=== PATIENT | male | born 1985 | race Caucasian/White ===

== ENCOUNTER 2020-12-09 12:36 | Emergency (ER) | payer OTHER, SELFPAY ==
[2020-12-09 12:53] VITALS: BP 134/79; PULSE 62; RESP 16; TEMP 36.8; O2SAT 96; BMI 27.3
[2020-12-09 13:10] LABS: COVID19 -Nasal RAPID Negative (Negative)
--- NOTE | 2020-12-09 13:16 | ED.GENADULT ---
HPI - General Adult General Chief complaint: Recheck/Abnormal Lab/Rx Stated complaint: grilfriend is pos covid needs a test to go to work Time Seen by Provider: 12/09/20 12:39 Source: patient Mode of arrival: Ambulatory Limitations: no limitations History of Present Illness HPI narrative: Patient is a 35-year-old male who is otherwise healthy who has no symptoms he was here for a COVID test. His girlfriend whom with he lives was seen here this morning and tested positive for COVID. He states he needed a COVID test prior to returning to work. Related Data Home Medications Medication Instructions Recorded Confirmed No Known Home Medications 06/23/18 06/23/18 Allergies Allergy/AdvReac Type Severity Reaction Status Date / Time No Known Drug Allergies Allergy Unverified 06/23/18 15:33 Review of Systems Constitutional Constitutional: Denies fever(s) and Denies headache(s) ENT Ears, Nose, Mouth, and Throat: Denies headache(s) Cardiovascular Cardiovascular: Denies dyspnea Respiratory Respiratory: Denies cough and Denies dyspnea Gastrointestinal Gastrointestinal: Denies abdominal pain, Denies nausea and Denies vomiting Integumentary/Breasts Skin/Breast: Denies rash Neurologic Neurologic: Denies headache(s) Hematologic/Lymphatic Hematologic/Lymphatic: Denies easy bleeding and Denies easy bruising Allergic/Immunologic Allergic/Immunologic: Denies urticaria Patient History Medical History Healthy adult Social History Smoking Status: Never smoker Smoking Status: Never smoker alcohol intake frequency: 0-2 drinks per day Substance Use Type: marijuana Exam Initial Vital Signs Initial Vital Signs: Vital Signs Temperature 98.2 F 12/09/20 12:53 Pulse Rate 62 12/09/20 12:53 Respiratory Rate 16 12/09/20 12:53 Blood Pressure 134/79 12/09/20 12:53 Pulse Oximetry 96 12/09/20 12:53 Const General: cooperative and comfortable Resp Effort & Inspection: normal respiratory effort Cardio Rate: regular rate Skin Lesions: no lesions Rashes: no rashes Extrem General: capillary refill normal Psych Appearance: grossly normal and well kempt Course Orders Ordered: ED Orders 12/09/20 12:39 COVID19 Stat Vital Signs Vital signs: Vital Signs - 8 hr 12/09/20 12:53 Temperature 98.2 F Pulse Rate 62 Respiratory Rate 16 Blood Pressure 134/79 Pulse Oximetry 96 Medical Decision Making Lab Data Lab results reviewed: Yes I reviewed the patient's lab results. Labs: Lab Results 12/09/20 Range/Units 12:48 SARS-CoV-2 (PCR) Negative (Negative) MDM Narrative Medical decision making narrative: Patient has no symptoms. No respiratory distress. Vital signs are unremarkable. His COVID-19 test is negative. We had a long discussion regarding this. Informed him that he is at high risk because he lives with an individual who is COVID positive. Informed him that today's test was negative but that does not necessarily mean that he is negative. That he could have COVID but just not yet had enough time to develop positive resolved or he could be exposed at a later date. He was given return precautions. He was given current guidelines with regard to quarantine. He expressed understanding and agreement. Discharge Plan Departure Patient Disposition: Home Clinical Impression: Encounter for laboratory testing for COVID-19 virus Instructions: COVID-19: Protecting Yourself When You're at High Risk Activity Restrictions/Additional Instructions: Your COVID-19 test was negative today however this test only tells us what is going on at this specific time. I know that you live with an individual who tested positive this morning. I do recommend that you quarantine yourself from this individual for at least the next 14 days. If he started to have symptoms I would assume that your COVID positive and if this happens return to the emergency department if you start having problems breathing. Contact your primary provider for follow-up. Prescriptions: No Action No Known Home Medications RF: 0
== END 2020-12-09 13:27 | disposition home or self-care (01) ==
PROVIDERS: Emergency Provider Emergency Medicine
DX: Z20.822 Contact with and (suspected) exposure to COVID-19 (principal)
CPT/HCPCS: 87635; 99281; 99282; C9803